=== PATIENT | female | born 2005 | race African-American/Black ===

== ENCOUNTER 2023-05-23 20:11 | Emergency (ER) | payer OTHER, SELFPAY ==
--- NOTE | ~2023-05-23 | US_ITS ---
EXAMINATION: US OB <=14 wk fetus w TV DATE: 05/23/2023 23:06 INDICATION: Left lower quadrant pain during first trimester TECHNIQUE: Real-time pelvic transabdominal and transvaginal ultrasound was performed. COMPARISON: None. FINDINGS: The uterus measures 7.9 x 4.1 x 5.1 cm. There is an intrauterine gestational sac. There is a small subchorionic hematoma adjacent to the gestational sac. A yolk sac is identified. No definite pole is identified. The mean sac diameter measures 6 mm, which correlates with an estimated ges tational age of 5 weeks and 2 day(s) (+/-) 3 day(s). The right ovary measures 1.3 x 2.6 x 1.7 cm. The left ovary measures 2.5 x 2.9 x 3.1 cm. There is nor mal vascular flow in the ovaries. There is no free fluid in the pelvis. IMPRESSION: 1. Intrauterine gestational sac without visible pole, possibly due to early . Estimate d gestational age is 5 weeks and 2 day(s) (+/-) 3 day(s) and an estimated delivery date of 01/21/2024 based on mean sac diameter. 2. Small subchorionic hematoma. Reviewed, dictated and finalized at location [facility] IMPRESSION: 1. Intrauterine gestational sac without visible pole, possibly due to ear ly . Estimated gestational age is 5 weeks and 2 day(s) (+/-) 3 day(s) and an estimated delivery date of 01/21/2024 based on mean sac diameter. 2. Small subchorionic hematoma.
[2023-05-23 20:17] VITALS: BP 135/72; PULSE 93; RESP 18; TEMP 36.1; O2SAT 100
[2023-05-23 20:59] LABS: Basophils Percent Auto 0.4 % (0.2-1.2); Eosinophils Absolute Auto 0.1 K/mm3 (0-0.3); Eosinophils Percent Auto 0.9 % (0-4.4); Hematocrit 40.2 % (37.0-47.0); Hemoglobin 12.7 g/dL (12.0-15.0); Immature Granulocyte Absolute 0.02 K/mm3 (0.00-0.031); Immature Granulocyte Percent A 0.3 % (0-0.5); Lymphocytes Absolute Auto 2.03 K/mm3 (0.9-3.2); Lymphocytes Percent Auto 25.6 % (18.3-44.2); Mean Corpuscular HGB Conc 31.6 g/dl (32-36); Mean Corpuscular Hemoglobin 29.3 pg (26-34); Mean Corpuscular Volume 92.8 fl (80-100); Mean Platelet Volume 9.8 fl (7.4-10.4); Monocytes Absolute Auto 0.4 K/mm3 (0.1-0.6); Monocytes Percent Auto 5.6 % (2.6-8.5); Neutrophils Absolute Auto 5.3 K/mm3 (1.3-6.7); Neutrophils Percent Auto 67.2 % (45.5-73.1); Platelet Count Result 301 k/mm3 (150-375); Red Blood Count 4.33 M/mm3 (4.2-5.4); Red Cell Distribution Width 13.6 % (11.5-14.5); White Blood Count 7.9 K/mm3 (4.5-10.0)
[2023-05-23 21:07] LABS: Appearance Urine Clear (Clear); Bacteria Urine None Seen /hpf; Bilirubin Urine Negative (Negative); Blood Urine Negative (Negative); Color Urine Yellow (Yellow); Glucose Urine UA Negative (Negative); Ketones Urine Negative (Negative); Leukocyte Esterase Ur Trace LEU/UL (Negative); Nitrate Urine Negative (Negative); Non Pathogenic Casts 0-2; Protein Urine Negative (Negative); RBC Urine 0-2 /hpf (0-2); Specific Grav Ur 1.009 (1.001-1.035); Squamous Epithelial Cell Urine Occasional /hpf (Few); WBC Urine 0-5 /hpf
[2023-05-23 21:08] LABS: Add Urine Microscopic? YES
[2023-05-23 21:10] LABS: Alanine Aminotransferase 43 U/L (6-35); Albumin Level 4.8 g/dL (3.7-5.6); Alkaline Phosphatase 51 U/L (45-116); Anion Gap 15 mmol/L (8-16); Aspartate Amino Transferase 31 U/L (14-36); Blood Urea Nitrogen 7 mg/dL (8-21); Calcium 9.4 mg/dL (8.9-10.7); Carbon Dioxide 23 mmol/L (22-30); Chloride 101 mmol/L (98-107); Estimated Glomerular Filt Rate > 60; Glucose 83 mg/dL (65-110); Lipase 54 U/L (23-300); Potassium 3.4 mmol/L (3.4-5.0); Sodium 139 mmol/L (134-143)
--- NOTE | 2023-05-23 22:17 | ED.ABDPAIN ---
HPI - Abdominal Pain General Chief Complaint: Abdominal Pain Stated Complaint: abd pain Time Seen by Provider: 05/23/23 20:27 Source: patient Mode of arrival: ambulatory Limitations: no limitations History of Present Illness HPI narrative: This is a 17 year old, about 6 weeks by LMP, that presents to the ER for left sided pelvic pain. Ongoing over the last week. Reports some worsening today which prompted her to be seen. She has not seen anyone yet this or had an US. She has not taken anything for pain. Denies fever, vomiting, dysuria, or hematuria. Related Data Allergies Allergy/AdvReac Type Severity Reaction Status Date / Time No Known Allergies Allergy Verified 05/23/23 20:21 Review of Systems Review of Systems: CONSTITUTIONAL: Denies fever GASTROINTESTINAL: Reports abdominal pain. Denies nausea, vomiting, or diarrhea. GENITOURINARY: Denies dysuria or hematuria. All systems reviewed & are unremarkable except as noted in HPI and below PMFSH Past Medical History Medical History (Updated 05/24/23 @ 00:51 by Anju Jain PA-C) No active medical problems Social History Social History (Updated 05/23/23 @ 22:20 by Anju Jain PA-C) Smoking status: Never smoker Exam Narrative: GENERAL: Well-appearing, well-nourished, and in no acute distress. HEAD: Normocephalic, atraumatic. EYES: EOMI. CHEST: Clear to auscultation. No respiratory distress. No wheezes rales or rhonchi HEART: Regular rate and rhythm. No murmur heard. Normal peripheral pulses. ABDOMEN: Soft, nontender, nondistended, normal active bowel sounds. EXTREMITIES: Normal range of motion. No edema. SKIN: Warm, dry, no rash. NEURO: No focal deficits. Alert and oriented x3. PSYCH: Normal mood and affect Course Course Emergency Course: Patient updated on workup and agrees with plan of care Vital Signs Vital signs: Vital Signs Temperature 97 F L 05/23/23 20:17 Pulse Rate 93 05/23/23 20:17 Respiratory Rate 18 05/23/23 20:17 Blood Pressure 135/72 05/23/23 20:17 Pulse Oximetry 100 05/23/23 20:17 Oxygen Delivery Room Air 05/23/23 20:17 Temperature 97 F L 05/23/23 20:17 Pulse Rate 93 05/23/23 20:17 Respiratory Rate 18 05/23/23 20:17 Blood Pressure 135/72 05/23/23 20:17 Pulse Oximetry 100 05/23/23 20:17 Oxygen Delivery Room Air 05/23/23 20:17 MDM - Abdominal Pain MDM Narrative Medical decision making narrative: Patient presents to the emergency department for abdominal discomfort and early . No vaginal bleeding. Patient is about 6 weeks by LMP. She is afebrile and nontoxic appearing. Her vitals are stable. Abdominal exam is benign. CBC and metabolic panel without concerning findings. UA without evidence of infection. Quantitative hCG 2758. As patient had no had an ultrasound yet this and her pain seemed to be more localized on the left, I did obtain an ultrasound to rule out ectopic . Ultrasound shows intrauterine gestation without a definite pole. Ultrasound age 5 weeks and 5 days. Small subchorionic hemorrhage. Patient was updated on workup. Instructed to have her follow up with OB for further evaluation. Will be given order for repeat quantitative beta hCG. She was given warnings to return to the ER Differential Diagnosis Differential diagnosis: Likely constipation and other (UTI, ectopic , ovarian cyst rupture) Lab Data Attestation: I reviewed the patient's lab results. 05/23/23 20:46 05/23/23 20:46 Labs: Lab Results 05/23/23 Range/Units 20:46 WBC 7.9 (4.5-10.0) K/mm3 RBC 4.33 (4.2-5.4) M/mm3 Hgb 12.7 (12.0-15.0) g/dL Hct 40.2 (37.0-47.0) % MCV 92.8 (80-100) fl MCH 29.3 (26-34) pg MCHC 31.6 L (32-36) g/dl RDW 13.6 (11.5-14.5) % Plt Count 301 (150-375) k/mm3 MPV 9.8 (7.4-10.4) fl Immature Gran % (Auto) 0.3 (0-0.5) % Neut % (Auto) 67.2 (45.5-73.1)
[2023-05-24 00:59] VITALS: BP 129/70; PULSE 92; RESP 17; O2SAT 99
== END 2023-05-24 01:01 | disposition home or self-care (01) ==
PROVIDERS: Emergency Provider Physician Assistant
DX: O26.891 Other specified pregnancy related conditions, first trimester (principal); R10.9 Unspecified abdominal pain; O46.8X1 Other antepartum hemorrhage, first trimester; Z3A.01 Less than 8 weeks gestation of pregnancy
CPT/HCPCS: 36415; 76801; 76817; 80053; 81001; 81025; 83690; 84702; 85025; 99284

== ENCOUNTER 2023-10-01 12:47 | Emergency (ER) | payer MEDICAID, SELFPAY ==
--- NOTE | ~2023-10-01 | XR_ITS ---
Clinical Indication: Chest tightness PA and lateral views of the chest: Comparison: None Findings: The lungs are clear, without evidence of focal consolidation or pleural effusion. Cardiome diastinal silhouette is within normal limits. Bones and soft tissues are unremarkable. Impression: Normal chest. Reviewed, dictated and finalized at location . Impression: Normal chest.
[2023-10-01 12:52] VITALS: BP 121/58; PULSE 84; RESP 16; TEMP 37.5; O2SAT 99
--- NOTE | 2023-10-01 12:55 | ECG_ITS ---
Measurements Intervals [place] Rate: 78 P: 65 MS: 122 QRS: 66 QRSD: 82 T: 36 QT: 350 QTc: 399 Interpretive Statements SINUS RHYTHM NO PREVIOUS ECG AVAILABLE FOR COMPARISON Electronically Signed On 10-01-2023 14:53:52 CDT by Benjamin Arroyo M.D.
[2023-10-01 13:21] LABS: Basophils Percent Auto 0.5 % (0.2-1.2); Eosinophils Absolute Auto 0.1 K/mm3 (0-0.3); Eosinophils Percent Auto 1.2 % (0-4.4); Hematocrit 36.8 % (37.0-47.0); Immature Granulocyte Absolute 0.01 K/mm3 (0.00-0.031); Immature Granulocyte Percent A 0.2 % (0-0.5); Lymphocytes Absolute Auto 1.44 K/mm3 (0.9-3.2); Lymphocytes Percent Auto 24.2 % (18.3-44.2); Mean Corpuscular HGB Conc 32.6 g/dl (32-36); Mean Corpuscular Hemoglobin 28.9 pg (26-34); Mean Corpuscular Volume 88.7 fl (80-100); Mean Platelet Volume 10.2 fl (7.4-10.4); Monocytes Absolute Auto 0.7 K/mm3 (0.1-0.6); Monocytes Percent Auto 11.4 % (2.6-8.5); Neutrophils Absolute Auto 3.7 K/mm3 (1.3-6.7); Neutrophils Percent Auto 62.5 % (45.5-73.1); Platelet Count Result 272 k/mm3 (150-375); Red Blood Count 4.15 M/mm3 (4.2-5.4); Red Cell Distribution Width 14.3 % (11.5-14.5)
[2023-10-01 13:26] LABS: INR 1.1; Prothrombin Time 14.3 Seconds (11.1-14.7)
[2023-10-01 13:32] LABS: Alanine Aminotransferase 15 U/L (6-35); Albumin Level 4.2 g/dL (3.5-5.1); Alkaline Phosphatase 56 U/L (38-126); Anion Gap 7 mmol/L (4-12); Aspartate Amino Transferase 20 U/L (14-36); Bilirubin,Total 0.7 mg/dL (0.2-1.3); Blood Urea Nitrogen 4 mg/dL (7-17); Calcium 9.2 mg/dL (8.4-10.2); Carbon Dioxide 22 mmol/L (22-30); Chloride 104 mmol/L (98-107); Estimated Glomerular Filt Rate > 60; Glucose 89 mg/dL (65-110); Lipase 32 U/L (23-300); Potassium 3.7 mmol/L (3.4-5.0); Sodium 133 mmol/L (137-145)
[2023-10-01 13:43] LABS: Troponin I < 0.012 ng/mL (0.000-0.034)
--- NOTE | 2023-10-01 15:54 | ED.CHESTPAIN ---
HPI - Chest Pain General Chief Complaint: Chest Pain Stated Complaint: chest congestion Time Seen by Provider: 10/01/23 14:50 Source: patient and family (partner) Mode of arrival: ambulatory Limitations: no limitations History of Present Illness HPI narrative: This is a 18-year-old 010 female presents with report chest pain. She states this has been going on for approximately 2 weeks. No recent travel. She does experience relief when sleeping but states is present upon awakening. Patient states it is in her chest and radiates to her back. She describes as a 10/10 in severity. She denies any recreational drugs or smoking. Describes the pain as constant. Denies any cough or fever. She notes it feels like a squeezing sensation in that this has never happened before. Of note her last menstrual period was August 17, 2023 and she had a positive home test. Around this time she started having symptoms. She has an upcoming appointment to see her ObGyn Dr Shree Sousa in [place] on 10/04/23 to establish with them for this . Has not taken any pain medicines and she does not know what is safe to take during . She does state she occasionally experiences abdominal pain doses has been chronic. Her last bowel movement was yesterday. She denies constipation or needing to strain to have bowel movements. Related Data Allergies Allergy/AdvReac Type Severity Reaction Status Date / Time No Known Allergies Allergy Verified 10/01/23 14:49 [facility] Past Medical History Medical History (Updated 10/02/23 @ 00:09 by Angelika Perez) No active medical problems Social History Social History (Updated 10/02/23 @ 11:26 by Rocio Harrington MD) Smoking status: Never smoker Substance use: never Exam Narrative: GENERAL: Well-appearing, well-nourished, and in no acute distress. HEAD: Normocephalic, atraumatic. EYES: Non injected, non icteric ENT: Nares clear, no rhinorrhea or epistaxis. NECK: Supple. CHEST: Clear to auscultation. No respiratory distress. Not tachypneic. New moving good air. Nonlabored. Speaking in full sentences. HEART: Regular rate and rhythm. Symmetric 2+ radial pulses in bilateral UEs. ABDOMEN: Soft, nondistended. EXTREMITIES: Normal range of motion. No edema. SKIN: Warm, dry, no rash. NEURO: No focal deficits. Alert and oriented x3. PSYCH: Normal mood and affect. Course Vital Signs Vital signs: Vital Signs Temperature 99.5 F 10/01/23 12:52 Pulse Rate 84 10/01/23 12:52 Respiratory Rate 16 10/01/23 12:52 Blood Pressure 121/58 L 10/01/23 12:52 Pulse Oximetry 99 10/01/23 12:52 Oxygen Delivery Room Air 10/01/23 12:52 Temperature 99 F 10/01/23 19:20 Pulse Rate 82 10/01/23 19:20 Respiratory Rate 17 10/01/23 19:20 Blood Pressure 121/58 L 10/01/23 12:52 Pulse Oximetry 100 10/01/23 19:20 Oxygen Delivery Room Air 10/01/23 14:47 MDM - Chest Pain MDM Narrative Medical decision making narrative: This is a 18-year-old 010 female at 6w2d by reported LMP 08/17/23 who presents with report chest pain. Acute viral panel negative. Labs and imaging unremarkable. Patient is reassessed. She continues to states she is having 10/10 pain but appears very comfortable. We discussed that the etiology of her chest pain remains unknown. We discussed the very slight possibility that this represents aortic dissection based on her description of central chest pain radiating to her back but for the following reasons why this would be less likely: symmetric pulses, duration of 2 weeks, pain not maximal at onset, no drug use or longstanding hypertension, age. We also discussed that transvaginal ultrasound could be performed since her is as of right now an undetermined location and she had complained of abdominal pain. However she states this is occurring once every couple of days and had been chronic. In addition, she has an ultrasoun
[2023-10-01 16:22] LABS: D Dimer < 0.27 ug/mL (<0.48)
[2023-10-01 16:37] LABS: Troponin I < 0.012 ng/mL (0.000-0.034)
[2023-10-01 16:40] LABS: Appearance Urine Clear (Clear); Bilirubin Urine Negative (Negative); Blood Urine Negative (Negative); Color Urine Dark Yellow (Yellow); Glucose Urine UA Negative (Negative); Ketones Urine 1+ mg/dL (Negative); Leukocyte Esterase Ur Negative LEU/UL (Negative); Nitrate Urine Negative (Negative); Protein Urine Negative (Negative); Specific Grav Ur 1.024 (1.001-1.035); pH Urine 6.5 (5.0-9.0)
[2023-10-01 16:43] LABS: Add Urine Microscopic? NO
[2023-10-01 16:49] LABS: Influenza A QL RT-PCR Negative (Negative); Influenza B QL RT-PCR Negative (Negative); RSV RNA, RT-PCR Negative (Negative); SARS-CoV-2 RNA PCR Negative (Negative)
[2023-10-01] MEDS: ACETAMINOPHEN 500 MG TABLET 1000 MG PO (18:24)
[2023-10-01 19:20] VITALS: PULSE 82; RESP 17; TEMP 37.2; O2SAT 100
== END 2023-10-01 19:20 | disposition home or self-care (01) ==
PROVIDERS: Emergency Medicine; Emergency Provider Student in an Organized Health Care Education/Training Program
DX: O26.891 Other specified pregnancy related conditions, first trimester (principal); R07.9 Chest pain, unspecified; R10.9 Unspecified abdominal pain; Z3A.01 Less than 8 weeks gestation of pregnancy
CPT/HCPCS: 36415; 71046; 80053; 81003; 81025; 83690; 84484; 84702; 85025; 85380; 85610; 85730; 87637; 93005; 99284; A9270

== ENCOUNTER 2023-10-10 10:47 | Emergency (ER) | payer MEDICAID, SELFPAY ==
[2023-10-10 11:00] VITALS: BP 121/66; PULSE 95; RESP 16; TEMP 36.7; O2SAT 100
--- NOTE | 2023-10-10 12:17 | PC.NURSE ---
tre Toro, informed this RN that tre Maldonado, saw her leaving.
--- NOTE | 2023-10-10 12:18 | PC.NURSE ---
Patient not found in room by this RN.
--- NOTE | 2023-10-10 12:22 | ED.GENADULT ---
HPI - General Adult General Chief complaint: Unspecified Stated complaint: 7 weeks , tired, pain everywhere Time Seen by Provider: 10/10/23 11:44 18-year-old female , who is 7 weeks presents to the emergency room for body aches, headache, nausea vomiting and abdominal pain has been present for over 1 week. Patient is yet to establish care with an OBGYN, stating that she has her 1st appointment in 5 days. Patient is requesting a vaginal ultrasound. Patient denies any vaginal pain or bleeding. Related Data Allergies Allergy/AdvReac Type Severity Reaction Status Date / Time No Known Allergies Allergy Verified 10/01/23 14:49 Review of Systems Review of Systems: CONSTITUTIONAL: Denies fever, chills, or sweats. EYES: Denies visual changes, redness, or discharge. ENT: Denies rhinorrhea, congestion, sore throat, or otalgia. CARDIOVASCULAR: Denies chest pain, palpitations, or edema. RESPIRATORY: Denies cough or dyspnea. GASTROINTESTINAL: Reports abdominal pain, nausea, vomiting GENITOURINARY: Denies dysuria or hematuria. SKIN: Denies rash or itching. MUSCULOSKELETAL: Denies back pain, joint pain, or myalgia. NEUROLOGIC: Denies headache, numbness, dizziness, or weakness. PSYCHIATRIC: Denies anxiety or depression. PMFSH Past Medical History Medical History No active medical problems Social History Social History Smoking status: Never smoker Substance use: never Exam Narrative: GENERAL: Well-appearing, well-nourished, no physical limitations, and in no acute distress. HEAD: Normocephalic, atraumatic. EYES: Conjunctivae normal, PERRLA and EOMI. CHEST: Clear to auscultation. No respiratory distress. No wheezes rales or rhonchi. No tenderness. HEART: Regular rate and rhythm. No murmur heard. Normal peripheral pulses. ABDOMEN: Soft, nontender, nondistended, normal active bowel sounds. BACK: No CVA tenderness EXTREMITIES: Normal range of motion. No edema. No clubbing or cyanosis SKIN: Warm, dry, no rash. No noted wounds NEURO: No focal deficits. Alert and oriented x3. MAEW. CN's II-XI intact bilaterally, normal gait PSYCH: Cooperative. Normal mood and affect. Course Course Emergency Course: Patient requests believe AMA. States she was here for an ultrasound to ?check on the status of the baby?. Explained to patient that a pelvic ultrasound is not indicated unless there is of vaginal bleeding associated with her patient appeared to leave in stable condition. Vital Signs Vital signs: Vital Signs Temperature 36.7 C 10/10/23 11:00 Pulse Rate 95 10/10/23 11:00 Respiratory Rate 16 10/10/23 11:00 Blood Pressure 121/66 10/10/23 11:00 Pulse Oximetry 100 10/10/23 11:00 Temperature 36.7 C 10/10/23 11:00 Pulse Rate 95 10/10/23 11:00 Respiratory Rate 16 10/10/23 11:00 Blood Pressure 121/66 10/10/23 11:00 Pulse Oximetry 100 10/10/23 11:00 Medical Decision Making Vital Signs Vital Signs: Vital Signs Temperature 36.7 C 10/10/23 11:00 Pulse Rate 95 10/10/23 11:00 Respiratory Rate 16 10/10/23 11:00 Blood Pressure 121/66 10/10/23 11:00 Pulse Oximetry 100 10/10/23 11:00 Temperature 36.7 C 10/10/23 11:00 Pulse Rate 95 10/10/23 11:00 Respiratory Rate 16 10/10/23 11:00 Blood Pressure 121/66 10/10/23 11:00 Pulse Oximetry 100 10/10/23 11:00 Discharge Plan Discharge Clinical Impression: Abdominal pain affecting , Nausea Patient Disposition: Left Against Medical Advice Condition: Stable Instructions: Antibiotic Form Prescriptions: No Action acetaminophen 650 mg tablet extended release 650 mg PO .q6 hr PRN (Reason: pain) Qty: 20 0RF Follow-up/Referrals: Sarah,Zoe Mcintosh MD [Primary Care Provider] - Time of Disposition: 12:25
== END 2023-10-10 12:40 | disposition left against medical advice (07) ==
PROVIDERS: Emergency Provider Nurse Practitioner Family; PCP Emergency Medicine
DX: O21.9 Vomiting of pregnancy, unspecified (principal); Z3A.01 Less than 8 weeks gestation of pregnancy
CPT/HCPCS: 99281

== ENCOUNTER 2023-10-11 12:52 | Emergency (ER) | payer MEDICAID, SELFPAY ==
--- NOTE | ~2023-10-11 | US_ITS ---
US OB <=14 wk fetus w TV DATE: 10/11/2023 16:38 INDICATION: Vaginal bleeding. 7 week gestation. TECHNIQUE: Real-time imaging via transabdominal and transvaginal approaches COMPARISON: None FINDINGS: A normally shaped intrauterine gestational sac is identified in the fundic area, with deepti l surrounding hyperechogenicity consistent with decidual reaction. Yolk sac and pole are eviden t. heart motion is noted with heart rate averaging 179 bpm. Normal amount of amniotic flu id. No subchorionic hemorrhage is evident. Lititz-rump length measures 1.39 cm consistent with 7 weeks 5 days estimated gestational age. The ovaries are unremarkable, with vascular flow. Small fluid collection in the posterior cul-de-sac may be physiologic. IMPRESSION: Live bailey intrauterine gestation, estimated gestational age of 7 weeks 5 days Reviewed, dictated and finalized at [facility]. Reviewed, dictated and finalized at location [facility].
[2023-10-11 13:02] VITALS: BP 102/66; PULSE 98; RESP 18; TEMP 36.4; O2SAT 100
--- NOTE | 2023-10-11 13:43 | ED.FEMALEGU ---
HPI - Female Genitourinary General Chief complaint: Vaginal Bleeding Stated complaint: 7 weeks , bleeding/cramping Time Seen by Provider: 10/11/23 13:43 Source: patient Mode of arrival: ambulatory Limitations: no limitations History of Present Illness HPI Narrative: Keerthi is a 18-year-old female patient presenting to the ER today for complaints of vaginal bleeding and cramping and she is currently 7 weeks . Last menstrual period- Also reporting some nausea and vomiting. Was seen yesterday for stomach pain and headache and signed out AMA. She was requesting an ultrasound at that time and they would not do it and she was not having any vaginal bleeding. 010 female and reported LMP 08/17/23. Patient is now coming in reporting bleeding about 2 hours prior to arrival. States that was bright red blood when she wiped and she is having abdominal cramping. Related Data Allergies Allergy/AdvReac Type Severity Reaction Status Date / Time No Known Allergies Allergy Verified 10/01/23 14:49 Review of Systems Review of Systems: Pertinent positives per HPI. Patient denies any fever, chills, rash, headache, visual changes, dizziness, cough, runny nose, sore throat, shortness of breath, chest pain, palpitations, nausea, vomiting, diarrhea, constipation, abdominal pain, or any urinary issues. PMFSH Past Medical History Medical History No active medical problems Social History Social History Smoking status: Never smoker Substance use: never Comments At the time of my signature, I reviewed and agree with the nursing past medical, surgical, social, and family history. There is no relevant family history pertinent to the patient complaint. Exam Narrative: General: Well-developed, well nourished, in no apparent distress Head: Normocephalic, atraumatic. Cardio: Regular rate and rhythm, s1 and s2 normal, no murmur appreciated. Resp: Clear to auscultation bilaterally, no rhonchi, rales, wheezing or rubs. Abdomen: Soft, pliable, bowel sounds present in all quadrants, non-tender to palpation, no CVAT tenderness. : Pelvic exam performed with (Valery CALLAHAN) at bedside. Verbal consent obtained from patient. Normal external female genitalia without lesions or masses, Urinary meatus: patent without discharge, Vagina: No lesions, masses, or discharge, Cervix: pink without mass, lesions, or tenderness. Thick white vaginal discharge in the pelvic vault. No blood visualized from the cervix Adnexa: without palpable mass or tenderness. Course Course Emergency Course: Portions of this record may have been created with voice recognition software. Vital Signs Vital signs: Vital Signs Temperature 36.4 C 10/11/23 13:02 Pulse Rate 98 10/11/23 13:02 Respiratory Rate 18 10/11/23 13:02 Blood Pressure 102/66 10/11/23 13:02 Pulse Oximetry 100 10/11/23 13:02 Oxygen Delivery Room Air 10/11/23 13:02 Temperature 36.4 C 10/11/23 13:02 Pulse Rate 98 10/11/23 13:02 Respiratory Rate 18 10/11/23 13:02 Blood Pressure 102/66 10/11/23 13:02 Pulse Oximetry 100 10/11/23 15:23 Oxygen Delivery Room Air 10/11/23 13:02 Vital signs reviewed MDM - Female Genitourinary MDM Narrative Medical decision making narrative: At the time of visit patient is resting comfortably on the exam table. Patient appears to be nontoxic. Labs: CBC shows white blood cell count of 5.6, H and H of 12.3 and 37.5, platelet counts 217, anti coagulation studies were within normal limits, sodium levels 135, potassium 3.4, chloride is 102, BUN 7, creatinine 0.6, GFR greater than 60, liver function test within normal limits, beta-hCG is pending, urine shows cloudy with 1+ protein and trace ketones without sign of infection, blood type is O-positive Diagnostics: Transvaginal ultrasound order due to
[2023-10-11 14:39] VITALS: O2SAT 100
[2023-10-11 14:47] LABS: Basophils Percent Auto 0.5 % (0.2-1.2); Eosinophils Percent Auto 0.5 % (0-4.4); Hematocrit 37.5 % (37.0-47.0); Hemoglobin 12.3 g/dL (12.0-15.0); Immature Granulocyte Absolute 0.01 K/mm3 (0.00-0.031); Immature Granulocyte Percent A 0.2 % (0-0.5); Lymphocytes Absolute Auto 1.61 K/mm3 (0.9-3.2); Lymphocytes Percent Auto 28.8 % (18.3-44.2); Mean Corpuscular HGB Conc 32.8 g/dl (32-36); Mean Corpuscular Hemoglobin 28.9 pg (26-34); Mean Platelet Volume 9.7 fl (7.4-10.4); Monocytes Absolute Auto 0.4 K/mm3 (0.1-0.6); Monocytes Percent Auto 7.3 % (2.6-8.5); Neutrophils Absolute Auto 3.5 K/mm3 (1.3-6.7); Neutrophils Percent Auto 62.7 % (45.5-73.1); Platelet Count Result 217 k/mm3 (150-375); Red Blood Count 4.26 M/mm3 (4.2-5.4); Red Cell Distribution Width 14.5 % (11.5-14.5); White Blood Count 5.6 K/mm3 (4.5-10.0)
[2023-10-11 14:49] VITALS: O2SAT 100
[2023-10-11 14:53] LABS: Appearance Urine Cloudy (Clear); Bacteria Urine Rare /hpf; Bilirubin Urine Negative (Negative); Blood Urine Negative (Negative); Color Urine Dark Yellow (Yellow); Glucose Urine UA Negative (Negative); Ketones Urine Trace mg/dL (Negative); Leukocyte Esterase Ur Negative LEU/UL (Negative); Nitrate Urine Negative (Negative); Non Pathogenic Casts 0-2; Protein Urine 1+ mg/dL (Negative); RBC Urine 0-2 /hpf (0-2); Specific Grav Ur 1.026 (1.001-1.035); Squamous Epithelial Cell Urine Few /hpf (Few); WBC Urine 0-5 /hpf (0-3); pH Urine 8.5 (5.0-9.0)
[2023-10-11 14:55] LABS: Add Urine Microscopic? YES
[2023-10-11 14:58] LABS: Alanine Aminotransferase 27 U/L (6-35); Albumin Level 4.4 g/dL (3.5-5.1); Alkaline Phosphatase 60 U/L (38-126); Anion Gap 8 mmol/L (4-12); Aspartate Amino Transferase 27 U/L (14-36); Blood Urea Nitrogen 7 mg/dL (7-17); Calcium 9.4 mg/dL (8.4-10.2); Carbon Dioxide 25 mmol/L (22-30); Chloride 102 mmol/L (98-107); Estimated Glomerular Filt Rate > 60; Glucose 88 mg/dL (65-110); Potassium 3.4 mmol/L (3.4-5.0); Sodium 135 mmol/L (137-145)
[2023-10-11 14:59] LABS: INR 1.1; Prothrombin Time 14.4 Seconds (11.1-14.7)
[2023-10-11 15:00] LABS: Partial Thromboplastin Time 36.7 Seconds (22.3-36.8)
[2023-10-11] MEDS: ACETAMINOPHEN 500 MG TABLET 1000 MG PO (15:22)
[2023-10-11 15:23] VITALS: O2SAT 100
[2023-10-11 17:45] VITALS: BP 115/71; PULSE 88; O2SAT 100
== END 2023-10-11 17:48 | disposition home or self-care (01) ==
PROVIDERS: Emergency Provider Nurse Practitioner Family; PCP Emergency Medicine
DX: O26.891 Other specified pregnancy related conditions, first trimester (principal); R10.9 Unspecified abdominal pain; R80.9 Proteinuria, unspecified; Z3A.01 Less than 8 weeks gestation of pregnancy
CPT/HCPCS: 36415; 76801; 76817; 80053; 81001; 81025; 84702; 85025; 85461; 85610; 85730; 86850; 86900; 86901; 99284; A9270